=== PATIENT | male | born 1970 ===

== ENCOUNTER 2017-10-19 18:23 | Emergency (ER) | payer BC ==
[2017-10-19] MEDS: Diphtheria,Pertussis(Acell),Tetanus Vaccine 0.5 ML SDV IM ONE (19:30)
[2017-10-19] MEDS: Bacitracin/Neomycin/Polymyxin B Oint 0.9 GM U/D Packet TOP ONE (19:31)
[2017-10-19] MEDS ORDERED: Bacitracin/Neomycin/Polymyxin B Oint 0.9 GM U/D Packet ONE (19:38)
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
== END 2017-10-19 20:05 | disposition home or self-care (01) ==
LOC: LL.ED 18:23
DX: S61.412A Laceration without foreign body of left hand, initial encounter (principal); Z23 Encounter for immunization; W29.3XXA Contact with powered garden and outdoor hand tools and machinery, initial encounter
CPT/HCPCS: 12001; 90471; 90715; 99283